=== PATIENT | female | born 1945 | race Caucasian/White ===

== ENCOUNTER 2017-07-02 07:55 | Day surgery (SDC) | payer OTHER, BC ==
[2017-07-01 14:49] VITALS: BMI 36.1
[2017-07-02] MEDS ORDERED: PROPOFOL 20 ML ONE ×4 (09:19→09:21)
[2017-07-02] MEDS ORDERED: LIDOCAINE HCL/PF 2% SDV 5ML VIAL ONE (09:19)
[2017-07-02 10:11] VITALS: TEMP 97.6
[2017-07-02 14:38] VITALS: BP 119/67; PULSE 88
--- NOTE | 2017-07-05 16:45 | PATH ---
Surgical Pathology Report Patient Name: BRIAN FRASER [facility]. Rec. #: [id number] /Age/Gender: 1945 (Age: 72) / F Account: [id number] Location: U-ENDOSCOPY Taken: 07/02/2017 Received: 07/02/2017 Reported: 07/05/2017 Physicians: Tiffany Partida M.D. Specimen(s) Received BX STOMACH Clinical History Abdominal pain, nausea Atrophic gastritis, esophageal candidiasis Final Diagnosis STOMACH, BIOPSY: GASTRIC OXYNTIC MUCOSA WITH MILD CHRONIC GASTRITIS. IMMUNOHISTOCHEMICAL STAIN FOR H. PYLORI IS NEGATIVE. Electronically Signed Regina Bird M.D. Gross Description Received in formalin, labeled "stomach" is a correia, irregular portion of soft tissue measuring 0.3 cm. in greatest dimension. The specimen is submitted in toto in one cassette. 07/02/201707/02/2017
--- NOTE | 2017-07-06 18:27 | PATH ---
Cytology Non-Gynecological Report Patient Name: BRIAN FRASER [facility]. Rec. #: [id number] /Age/Gender: 1945 (Age: 72) / F Account: [id number] Location: U-ENDOSCOPY Taken: 07/02/2017 Received: 07/06/2017 Reported: 07/06/2017 Physicians: Tiffany Partida M.D. Specimen(s) Received ESOPHAGEAL BRUSH Clinical History Epigastric pain Final Diagnosis ESOPHAGEAL BRUSHING FOR CYTOLOGY: SATISFACTORY FOR EVALUATION. NEGATIVE FOR MALIGNANT CELLS. BENIGN SQUAMOUS CELLS PRESENT. RARE CILIATED COLUMNAR EPITHELIAL CELLS PRESENT. NO FUNGAL ORGANISMS IDENTIFIED. Electronically Signed Regina Bird M.D. Gross Description Received one alcohol fixed direct smear, which is Pap stained. Also received fixed in 95% alcohol is a brush, two slides prepared and Pap stained.
== END 2017-07-02 11:30 | disposition home or self-care (01) ==
LOC: JASU-ENDO 07:55
PROVIDERS: ATTEND Internal Medicine Gastroenterology
PROC: 0DB68ZX Excision of Stomach, Via Natural or Artificial Opening Endoscopic, Diagnostic (ICD-10-PCS; principal; 2017-07-02 09:00)
DX: K21.9 Gastro-esophageal reflux disease without esophagitis (principal); K29.70 Gastritis, unspecified, without bleeding; Z98.84 Bariatric surgery status
CPT/HCPCS: 88104; 88305-TC; 88342-TC

== ENCOUNTER 2022-11-16 11:30 | Emergency (ER) | payer OTHER, BC ==
[2022-11-16 11:54] VITALS: BP 116/93; PULSE 98; RESP 116; TEMP 97.6; BMI 35.9
[2022-11-16] MEDS ORDERED: IBUPROFEN 400 MG TABLET (FP) PO ONE (13:38)
[2022-11-16] MEDS ORDERED: ACETAMINOPHEN 325 MG TABLET (FP) PO ONE (13:38)
== END 2022-11-16 14:30 | disposition home or self-care (01) ==
LOC: JERFT 11:30
DX: M25.552 Pain in left hip (principal)
CPT/HCPCS: 99283-25

== ENCOUNTER 2023-03-30 10:05 | Day surgery (SDC) | payer OTHER, BC ==
[2023-03-16 15:58] VITALS: BMI 32.8
[2023-03-30] MEDS ORDERED: TRANEXAMIC ACID 1000 MG/10 ML VIAL IVPUSH ONE (10:18)
[2023-03-30] MEDS ORDERED: CEFAZOLIN 2 GM in DEXTROSE 5%-WATER - 50 ML IVPB ONE (10:18)
[2023-03-30 11:02] LABS: INR 1.24 (0.83-1.09); PROTHROMBIN TIME (PATIENT) 14.4 SEC (9.7-13.0)
[2023-03-30] MEDS ORDERED: oxyCODONE HCL 5 MG TABLET PO PRN (11:40)
[2023-03-30] MEDS ORDERED: ONDANSETRON 4 MG/2 ML VIAL IVPUSH PRN (11:40)
[2023-03-30] MEDS ORDERED: FENTANYL CITRATE/PF 50 MCG/ML VIAL ONE (12:01)
[2023-03-30] MEDS ORDERED: MIDAZOLAM HCL 2 MG/2 ML SINGLE DOSE VIAL ONE (12:01)
[2023-03-30] MEDS ORDERED: BUPIVACAINE HCL/PF 2.5 MG/ML - 30 ML VIAL IJ ONE (12:02)
[2023-03-30] MEDS ORDERED: BUPIVACAINE HCL/PF 0.5% (5MG/ML) 10 ML VIAL ONE (12:02)
[2023-03-30] MEDS ORDERED: THROMBIN (BOVINE) 5,000 UNIT VIAL TP ONE (12:19)
[2023-03-30] MEDS ORDERED: VANCOMYCIN 1,000 MG VIAL (RESTRICTED TO ID ONLY) ONE (12:19)
[2023-03-30] MEDS ORDERED: ceFAZolin SODIUM 1 GM VIAL ONE ×2 (12:19→12:20)
[2023-03-30] MEDS ORDERED: TOBRAMYCIN 0.3% OPHTH SOLN 5 ML BOTTLE OU PRN (14:23)
[2023-03-30] MEDS ORDERED: PANTOPRAZOLE 40 MG TABLET PO PRN (14:23)
[2023-03-30] MEDS ORDERED: INSULIN (NOVOLOG MIX 70/30) 100 UNITS/ML MDV SQ PRN (14:23)
[2023-03-30] MEDS ORDERED: LACTATED RINGERS SOLUTION 1,000 ML IV SCH (14:30)
[2023-03-30] MEDS ORDERED: ePHEDrine SULFATE 50 MG/1 ML AMPULE ONE (14:41)
[2023-03-30] MEDS ORDERED: WARFARIN NA 1 MG TABLET PO SCH (18:00)
[2023-03-30] MEDS: oxyCODONE HCL 5 MG TABLET PO PRN (21:00)
[2023-03-30] MEDS: CEFAZOLIN SODIUM 2 GM in DEXTROSE 5%-WATER 100 ML IVPB SCH (21:20)
[2023-03-30] MEDS: SENNOSIDES/DOCUSATE COMBO (SENNA PLUS) TABLET (UD) PO SCH (21:53)
[2023-03-30] MEDS ORDERED: NEBIVOLOL 5 MG TABLET (FP) PO SCH (22:00)
[2023-03-31 02:00] VITALS: RESP 18
[2023-03-31] MEDS: oxyCODONE HCL 5 MG TABLET PO PRN ×2 (03:40→09:36)
[2023-03-31] MEDS: CEFAZOLIN SODIUM 2 GM in DEXTROSE 5%-WATER 100 ML IVPB SCH (05:50)
[2023-03-31] MEDS ORDERED: LEVOTHYROXINE 50 MCG, LEVOTHYROXINE 125 MCG PO SCH (07:00)
[2023-03-31 07:49] LABS: HEMATOCRIT 37.3 % (32.4-45.2); HEMOGLOBIN 12.2 G/dL (10.7-15.3); MCH 31.8 pg (25.7-33.7); MCHC 32.8 g/dl (32.0-36.0); MEAN CELL VOLUME 96.9 fl (80-96); MEAN PLT VOLUME 8.5 fl (7.5-11.1); RBC 3.85 10^6/uL (3.60-5.2); RDW 13.5 % (11.6-15.6); WHITE BLOOD COUNT 8.3 10^3/uL (4.0-10.8)
[2023-03-31] MEDS: CHOLESTYRAMINE/ASPARTAME 4 GM PACKET PO SCH ×2 (07:51)
[2023-03-31] MEDS ORDERED: CHOLESTYRAMINE/SUCROSE 4 GM PACKET PO SCH (08:00)
[2023-03-31] MEDS: SENNOSIDES/DOCUSATE COMBO (SENNA PLUS) TABLET (UD) PO SCH (09:37)
[2023-03-31] MEDS ORDERED: LOSARTAN POTASSIUM 50 MG TABLET PO SCH (10:00)
[2023-03-31] MEDS ORDERED: ENOXAPARIN NA (PORCINE) 40 MG/0.4 ML DISP.SYRIN SQ ONE (10:00)
[2023-03-31] MEDS ORDERED: MULTIVITAMINS (DAILY MVI) TABLET (FP) PO SCH (10:00)
[2023-03-31] MEDS ORDERED: SPIRONOLACTONE 25 MG TABLET PO SCH (10:00)
[2023-03-31] MEDS ORDERED: PANTOPRAZOLE 40 MG TABLET PO SCH (10:00)
[2023-03-31] MEDS ORDERED: FUROSEMIDE 40 MG TABLET (FP) PO SCH (10:00)
[2023-03-31] MEDS ORDERED: PATIENT'S OWN MEDICATION (NON-FORMULARY) (Levothyroxine [Synthroid -] 175 MCG Tablet) PO SCH (10:00)
[2023-03-31 14:36] VITALS: BP 90/51; PULSE 60; TEMP 98.4
== END 2023-03-31 15:55 | disposition home health service (06) ==
LOC: FASUSAT 10:05 → FM/S 17:18 → FASUSAT 03-31 15:55
PROVIDERS: ATTEND Orthopaedic Surgery
PROC: 8E0Y0CZ Robotic Assisted Procedure of Lower Extremity, Open Approach (ICD-10-PCS; 2023-03-30)
PROC: 0SRB0JA Replacement of Left Hip Joint with Synthetic Substitute, Uncemented, Open Approach (ICD-10-PCS; principal; 2023-03-30 13:25)
DX: M16.12 Unilateral primary osteoarthritis, left hip (principal)
CPT/HCPCS: 20985; 27130; C1776; S2900; 36415; 73502-TC-LT-FY; 82962; 85027; 85610; 94760; 97116-GP; 97161-GP